=== PATIENT | male | born 1975 | race Caucasian/White ===

== ENCOUNTER 2016-06-05 04:07 | Emergency (ER) | payer OTHER ==
[~2016-06-05] VITALS: Ht 182.9 cm; Wt 88.0 kg
[~2016-06-05 04:07] MED LIST: AMB10 PO; ATV2 PO; CEPH500C PO; CLX20 PO; NAPR-1168 PO; ONDA4TAB46 PO; OXYC1TAB3 PO
[2016-06-05 04:15] VITALS: TEMP 36.6; Ht 182.9 cm; Wt 88.0 kg
[2016-06-05] MEDS ORDERED: ACETAMINOPHEN 500 MG TAB PO STA (04:32)
[2016-06-05] MEDS ORDERED: AMOXICILLIN/CLAVULANATE TAB 875 MG TAB PO ONE (04:45)
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
[2016-06-05] MEDS ORDERED: AMOX875T PO (05:36)
[2016-06-05 05:45] VITALS: BP 161/98; PULSE 95; O2SAT 98
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
== END 2016-06-05 05:45 | disposition home or self-care (01) ==
LOC: C.EDB 04:08 → C.EDA 05:45
DX: S09.90XA Unspecified injury of head, initial encounter (principal); S19.9XXA Unspecified injury of neck, initial encounter; S29.9XXA Unspecified injury of thorax, initial encounter; S01.502A Unspecified open wound of oral cavity, initial encounter; Y04.2XXA Assault by strike against or bumped into by another person, initial encounter; Y92.89 Other specified places as the place of occurrence of the external cause; G89.29 Other chronic pain; Z79.899 Other long term (current) drug therapy

== ENCOUNTER 2021-09-21 17:14 | Observation (INO) ==
[2021-09-21 17:51] LABS: Basophils # (auto) 0.01 K/uL (0-0.2); Basophils % (auto) 0.1 %; Eosinophils # (auto) 0.03 K/uL (0-0.5); Eosinophils % (auto) 0.4 %; Hematocrit (blood only) 44.5 % (42-52); Hemoglobin 15.5 g/dL (14.0-18.0); Immature Granulocytes # (auto) 0.02 K/uL (0.00-0.02); Immature Granulocytes % (auto) 0.3 %; Lymphocytes # (auto) 0.65 K/uL (1.2-3.4); Lymphocytes % (auto) 8.2 %; Mean Corpuscular Hgb Conc 34.8 g/dL (32-36); Mean Corpuscular Volume 91.9 fL (80-100); Mean Platelet Volume 10.8 fL (7.4-10.4); Monocytes # (auto) 0.52 K/uL (0.11-0.59); Monocytes % (auto) 6.6 %; Neutrophils # (auto) 6.67 K/uL (1.4-6.5); Neutrophils % (auto) 84.4 %; Platelet Count 170 K/uL (130-400); RDW Standard Deviation 43.4 fL (36.4-46.3); Red Blood Count 4.84 M/uL (4.7-6.1)
--- NOTE | 2021-09-21 18:09 | Emergency Department Note ---
History of Present Illness General Chief complaint: Abdominal Pain Stated complaint: APPENDICITIS, REF BY Time Seen by Provider: 09/21/21 17:29 Source: patient Mode of arrival: ambulatory Limitations: no limitations History of Present Illness Maximum Pain Intensity: 6 This patient is a 46-year-old male who presents to the emergency department for evaluation of appendicitis. Patient states that he began having some abdominal pain last night, which was initially some mild generalized pain. He states that the pain worsened today and was more localized in the right lower quadrant. He was seen at his PCPs office and they ordered a CT scan which was done as an outpatient and showed acute appendicitis. Patient reports his pain is a 6/10. He denies any nausea/vomiting or fevers. He last ate last night. Home Medications Medication Instructions Recorded Confirmed Type Various Herbal Medications 1 dose PO DAILY 02/10/20 09/21/21 History ibuprofen 200 mg tablet 400 - 600 mg PO Q6H PRN 02/10/20 09/21/21 History methylphenidate HCl 20 mg tablet 20 mg PO TID 02/10/20 09/21/21 History (Ritalin) zinc 50 mg tablet 50 mg PO DAILY 02/10/20 09/21/21 History zolpidem 10 mg tablet (Ambien) 10 mg PO HS 02/10/20 09/21/21 History ascorbic acid (vitamin C) 1,000 mg 2 g PO DAILY 09/21/21 09/21/21 History tablet (Vitamin C) Allergies Allergy/AdvReac Type Severity Reaction Status Date / Time aspirin Allergy Intermediate HIVES Verified 09/21/21 17:58 carbamazepine Allergy Intermediate Rash Verified 09/21/21 17:58 Past Med/Surg History Medical History ADHD Surgical History S/P wisdom tooth extraction Social History Smoking Status: Never smoker Feels Safe at Home: Yes Review of Systems A total of 10 systems reviewed and were otherwise negative Physical Exam Vital Signs Vital Signs - 24 hr 09/21/21 17:22 09/21/21 17:43 09/21/21 18:30 Temperature 37.4 C Temperature Source Temporal Artery Scan Pulse Rate 105 H 82 Pulse Rate [Apical] 90 Pulse Rhythm [Apical] Respiratory Rate 16 16 15 Respiratory Effort / Characteristics Non-Labored Respiratory Depth Normal Respiratory Pattern Blood Pressure 158/93 H 141/97 H Blood Pressure [Right Arm] 152/94 H Blood Pressure Mean 114 111 Blood Pressure Mean [Right Arm] 113 Pulse Oximetry 98 97 98 Oxygen Delivery Method Room Air Sepsis Recent Fever Within 48 Hours No Sepsis New/Unexplained Change in Mental Status No Sepsis Action Taken by Nursing No Action Required 09/21/21 19:00 09/21/21 19:30 09/21/21 21:54 Temperature 36.0 C L Temperature Source Temporal Artery Scan Pulse Rate 79 78 Pulse Rate [Apical] 92 H Pulse Rhythm [Apical] Regular Respiratory Rate 17 14 20 Respiratory Effort / Characteristics Non-Labored Spontaneous Respiratory Depth Normal Respiratory Pattern Regular Blood Pressure 138/78 136/79 Blood Pressure [Right Arm] 140/98 Blood Pressure Mean 98 98 Blood Pressure Mean [Right Arm] 112 Pulse Oximetry 95 95 96 Oxygen Delivery Method Room Air Sepsis Recent Fever Within 48 Hours Sepsis New/Unexplained Change in Mental Status Sepsis Action Taken by Nursing 09/21/21 22:00 09/21/21 22:10 Temperature Temperature Source Pulse Rate Pulse Rate [Apical] 90 80 Pulse Rhythm [Apical] Regular Regular Respiratory Rate 16 16 Respiratory Effort / Characteristics Non-Labored Spontaneous Non-Labored Spontaneous Respiratory Depth Normal Normal Respiratory Pattern Regular Regular Blood Pressure Blood Pressure [Right Arm] 145/96 H 151/90 H Blood Pressure Mean Blood Pressure Mean [Right Arm] 112 110 Pulse Oximetry 97 94 Oxygen Delivery Method Room Air Room Air Sepsis Recent Fever Within 48 Hours Sepsis New/Unexplained Change in Mental Status Sepsis Action Taken by Nursing VITALS: Vitals are noted on the nurse's note and reviewed by myself. GENERAL: This is a 46-year-old male, in no acute distress, well-developed well- nourished. SKIN: The skin was without rashes. EYES: Pupils equal round and reactive to light and accommodation. MOUTH: Mucous membranes moist. Tonsils are not enlarged. Pharynx without erythema or exudate. NECK: Supple without nuchal rigidity. No lymphadenopathy. HEART: Regular rate and rhythm without murmurs gallops or rubs. LUNGS: Clear to auscultation bilaterally without wheezes, rales or rhonchi. ABDOMEN: Positive bowel sounds x 4. Soft, moderate tenderness in the right lower quadrant. No guarding or rebound tenderness. NEURO: Patient was alert and oriented to person place and time. Course Administered Medications Fentanyl Citrate (Fentanyl Citrate 100 Mcg/2 Ml Vial) 50 mcg IV Q5M PRN PRN Reason: PACU Use Only-Pain Stop: 09/22/21 02:38 Last Admin: 09/21/21 22:05 Dose: 50 mcg Documented by: [id number] Admin: 09/21/21 21:56 Dose: 50 mcg Documented by: [id number] Discontinued Medications Bupivacaine HCl (Bupivacaine 0.5 % 5 Mg/1 Ml Mpf 30ml Vial) Confirm Administered Dose 30 ml .ROUTE .STK-MED ONE Stop: 09/21/21 18:34 Last Admin: 09/21/21 21:37 Dose: 30 ml Documented by: [id number] Epinephrine HCl (Epinephrine Inj 1 Mg/Ml Amp) Confirm Administered Dose 1 mg .ROUTE .STK-MED ONE Stop: 09/21/21 18:34 Last Admin: 09/21/21 21:37 Dose: 0.15 mg Documented by: [id number] Fentanyl Citrate (Fentanyl Citrate 100 Mcg/2 Ml Vial) Confirm Administered Dose 100 mcg .ROUTE .STK-MED ONE Stop: 09/21/21 21:55 Last Admin: 09/21/21 21:57 Dose: Not Given Documented by: [id number] Cefoxitin Sodium (Mefoxin) 2,000 mg in 60 mls @ 100 mls/hr IV NOW STA Stop: 09/21/21 18:57 Last Infusion: 09/21/21 19:09 Dose: 0 mls/hr Documented by: [id number] Admin: 09/21/21 18:30 Dose: 100 mls/hr Documented by: [id number] Sodium Chloride (Nss 1000ml) 1,000 mls @ 999 mls/hr IV .Q1H1M TY Stop: 09/21/21 20:30 Last Infusion: 09/21/21 20:24 Dose: 0 mls/hr Documented by: [id number] Admin: 09/21/21 19:23 Dose: 999 mls/hr Documented by: [id number] Morphine Sulfate (Morphine Sulfate 2 Mg/Ml Carp) 2 mg IV NOW STA Stop: 09/21/21 19:18 Last Admin: 09/21/21 19:21 Dose: 2 mg Documented by: [id number] Medical Decision Making Differential Diagnosis Appendicitis, testicular torsion, infections, diverticulitis, UTI, obstruction, mesenteric ischemia, aortic pathology, inflammatory bowel disease, renal colic, PUD, pancreatitis, biliary pathology, hernia, volvulus, constipation, as well as other pathologies. Medical Records Attestation: I reviewed the patient's medical records. Outside records were reviewed. Patient had a CT scan performed through [facility] today which showed acute appendicitis without abscess or perforation. Home Medications Current Medication List: was personally reviewed by me Laboratory Data Attestation: I reviewed the patient's lab results. Result diagrams: 09/21/21 17:40 09/21/21 17:40 Lab Results 09/21/21 09/21/21 09/21/21 Range/Units 17:33 17:40 17:40 WBC 7.90 (4.8-10.8) K/uL RBC 4.84 (4.7-6.1) M/uL Hgb 15.5 (14.0-18.0) g/dL Hct 44.5 (42-52) % MCV 91.9 (80-100) fL MCH 32.0 (25-34) pg MCHC 34.8 (32-36) g/dL RDW Std Deviation 43.4 (36.4-46.3) fL RDW Coeff of [place] 13.0 (11.5-14.5) % Plt Count 170 (130-400) K/uL MPV 10.8 H (7.4-10.4) fL Immature Gran % (Auto) 0.3 % Neut % (Auto) 84.4 % Lymph % (Auto) 8.2 % [place] % (Auto) 6.6 % Eos % (Auto) 0.4 % Baso % (Auto) 0.1 % Neut # (Auto) 6.67 H (1.4-6.5) K/uL Lymph # (Auto) 0.65 L (1.2-3.4) K/uL [place] # (Auto) 0.52 (0.11-0.59) K/uL Eos # (Auto) 0.03 (0-0.5) K/uL Baso # (Auto) 0.01 (0-0.2) K/uL Immature Gran # (Auto) 0.02 (0.00-0.02) K/uL Sodium 136 (136-145) mmol/L Potassium 3.7 (3.5-5.1) mmol/L Chloride 99 (98-107) mmol/L Carbon Dioxide 26 (21-32) mmol/L Anion Gap 11 (3-11) BUN 8 (6-23) mg/dl Creatinine 0.89 (0.6-1.4) mg/dl Est Cr Clr Drug Dosing 118.2 ml/min Est GFR ( Amer) 120.5 ml/min Est GFR (Non-Af Amer) 104.0 ml/min BUN/Creatinine Ratio 9.0 L (10-20) Glucose 100 H (70-99(Fasting)) mg/dl Calcium 9.8 (8.5-10.1) mg/dl Total Bilirubin 1.0 (0.2-1.0) mg/dl AST 15 (13-39) U/L ALT 9 (7-52) U/L Alkaline Phosphatase 47 (34-104) U/L Total Protein 7.9 (6.0-8.3) gm/dl Albumin 5.0 (3.4-5.0) gm/dl Globulin 2.9 (2.5-4.0) gm/dl Albumin/Globulin Ratio 1.7 (0.9-2) SARS-CoV-2, RNA, NAAT NEGATIVE (NEGATIVE) MDM Narrative This patient is a 46-year-old male who presents to the emergency department for evaluation of abdominal pain. He had an outpatient CT scan done today which showed acute appendicitis. General surgery was consulted and will evaluate the patient for further care. Patient given a dose of cefoxitin. COVID-19 test was performed and was negative. Impression & Plan Acute appendicitis Discharge Plan Visit Data Chief Complaint: Abdominal Pain Stated Complaint: APPENDICITIS, REF BY ED Provider: Davey Freeman ED Midlevel Provider: Amie Gonzalez Discharge Problem: Acute appendicitis Discharge Instructions Interventions: ED Discharge Assessment Last Done: 09/21/21 20:32 Forms Stand Alone Forms: [facility] Prescriptions Prescriptions: No Action methylphenidate HCl [Ritalin] 20 mg tablet 20 mg PO TID RF: 0 ibuprofen 200 mg Tablet 400 - 600 mg PO Q6H PRN (Reason: Pain) RF: 0 zinc 50 mg Tablet 50 mg PO DAILY RF: 0 zolpidem [Ambien] 10 mg tablet 10 mg PO HS RF: 0 Various Herbal Medications 1 dose PO DAILY RF: 0 ascorbic acid (vitamin C) [Vitamin C] 1,000 mg Tablet 2 g PO DAILY RF: 0 Referrals Referrals: Juan Hernandez DO [Primary Care Provider] -
[2021-09-21 18:20] LABS: Albumin Globulin Ratio 1.7 (0.9-2); Calcium 9.8 mg/dl (8.5-10.1); Creatinine Clr Calc Pharmacy 118.2 ml/min; Est GFR (African American) 120.5 ml/min; Globulin 2.9 gm/dl (2.5-4.0); Potassium 3.7 mmol/L (3.5-5.1); Total Protein 7.9 gm/dl (6.0-8.3)
[2021-09-21] MEDS ORDERED: cefOXitin 2,000 MG/60 ML BAG IV STA (18:22)
[2021-09-21] MEDS ORDERED: EPINEPHrine INJ 1 MG/ML AMP ONE (18:33)
[2021-09-21] MEDS ORDERED: BUPIVACAINE 0.5 % 5 MG/1 ML MPF 30ML VIAL ONE (18:33)
[2021-09-21] MEDS ORDERED: ePHEDrine sulfate 50 MG/ML AMP IV PRN (18:38)
[2021-09-21] MEDS ORDERED: ONDANSETRON INJ 2 MG/ML 2 ML VIAL IV PRN ×2 (18:38→23:26)
[2021-09-21] MEDS ORDERED: ATROPINE SULFATE 0.1 MG/ML 10ML SYR IV PRN (18:38)
--- NOTE | 2021-09-21 18:40 | Anesthesiology Consultation ---
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 History Surgery Operation Date: 09/21/21 18:30 Proposed Procedures p Laparoscopic Appendectomy - Jaiber Friedman DO Height/Weight Height: 5 ft 10 in Weight: 87.7 kg Allergies Allergy/AdvReac Type Severity Reaction Status Date / Time aspirin Allergy Intermediate HIVES Verified 09/21/21 17:58 carbamazepine Allergy Intermediate Rash Verified 09/21/21 17:58 Medications Home Medications Medication Instructions Recorded Confirmed Last Taken Various Herbal Medications 1 dose PO DAILY 02/10/20 09/21/21 02/10/20 ibuprofen 200 mg tablet 400 - 600 mg PO Q6H PRN 02/10/20 09/21/21 02/10/20 600 mg methylphenidate HCl 20 mg tablet 20 mg PO TID 02/10/20 09/21/21 09/21/21 14:00 (Ritalin) zinc 50 mg tablet 50 mg PO DAILY 02/10/20 09/21/21 09/21/21 zolpidem 10 mg tablet (Ambien) 10 mg PO HS 02/10/20 09/21/21 09/20/21 ascorbic acid (vitamin C) 1,000 mg 2 g PO DAILY 09/21/21 09/21/21 09/21/21 tablet (Vitamin C) Active Medications Generic Name Dose Route Start Last Admin Trade Name Freq PRN Reason Stop Dose Admin Cefoxitin Sodium 2,000 mg in 60 mls @ 100 mls/hr 09/21/21 18:22 09/21/21 18:30 Mefoxin IV 09/21/21 18:57 100 mls/hr NOW STA Administration NPO Date Last Intake of Fluids: 09/21/21 Last Intake of Fluids Comment: Water this morning Date Last Intake of Solids: 09/20/21 Past Medical History Medical History ADHD Past Surgical History Surgical History S/P wisdom tooth extraction Social History Smoking Status: Never smoker Physical Exam Vital Signs Last Vital Signs Temp 99.3 F 09/21/21 17:22 Pulse 90 09/21/21 17:43 Resp 16 09/21/21 17:43 BP 152/94 H 09/21/21 17:43 Pulse Ox 97 09/21/21 17:43 Testing Laboratory Results 09/21/21 17:40 09/21/21 17:40
[2021-09-21] MEDS ORDERED: MoRPHine SULFATE 2 MG/ML CARP IV STA (19:17)
[2021-09-21] MEDS ORDERED: SODIUM CHLORIDE 0.9% 1000ML 1,000 ML IV SCH (19:30)
--- NOTE | 2021-09-21 19:32 | History & Physical Report ---
Date of Service September 21, 2021 Assessment & Plan (1) Acute appendicitis: Plan: We discussed his diagnosis as well as his options. We discussed nonoperative versus operative options. We discussed the risks of surgery which include bleeding, infection, injury to another organ such as ureter bowel or bladder, DVT, PE, KS, CVA etc. I answered all of his questions. We will proceed as soon as possible with laparoscopic appendectomy. He agrees with the plan. History of Present Illness Primary Care Provider: Juan Hernandez DO 46-year-old male with pain since yesterday. Has progressed overnight into this morning in the right lower quadrant. Outpatient CT scan shows acute appendicitis. Allergies Allergy/AdvReac Type Severity Reaction Status Date / Time aspirin Allergy Intermediate HIVES Verified 09/21/21 17:58 carbamazepine Allergy Intermediate Rash Verified 09/21/21 17:58 Home Medications Medication Instructions Recorded Confirmed Type Various Herbal Medications 1 dose PO DAILY 02/10/20 09/21/21 History ibuprofen 200 mg tablet 400 - 600 mg PO Q6H PRN 02/10/20 09/21/21 History methylphenidate HCl 20 mg tablet 20 mg PO TID 02/10/20 09/21/21 History (Ritalin) zinc 50 mg tablet 50 mg PO DAILY 02/10/20 09/21/21 History zolpidem 10 mg tablet (Ambien) 10 mg PO HS 02/10/20 09/21/21 History ascorbic acid (vitamin C) 1,000 mg 2 g PO DAILY 09/21/21 09/21/21 History tablet (Vitamin C) Past Med/Surg History Medical History ADHD Surgical History S/P wisdom tooth extraction Social History Smoking Status: Never smoker Feels Safe at Home: Yes Review of Systems All systems reviewed & are unremarkable except as noted in HPI & below Physical Exam Constitutional: WD/WN, vitals as above no acute distress and not ill appearing Eyes: PERRL, conjunctivae normal, anicteric sclerae EOM intact bilaterally ENMT: external ear and nose normal, oropharynx normal Ears: no hearing impairment Neck: trachea midline, no thyromegaly Respiratory: normal respiratory effort; no respiratory distress and does not use accessory muscles Cardiovascular: Rate/Rhythm: regular rate and regular rhythm Gastrointestinal (Abdomen): Soft. Positive lower abdominal tenderness. Positive McBurney's. Positive Rovsing. Skin: no rashes, warm and dry Psychiatric: Orientation: alert, oriented x 3 and cooperative Results & Data ([facility]) Vital Signs (Past 12 Hours) Vital Signs Temp Pulse Pulse Resp BP BP Pulse Ox 09/21/21 19:00 79 17 138/78 95 09/21/21 18:30 82 15 141/97 H 98 09/21/21 17:43 90 16 152/94 H 97 09/21/21 17:22 37.4 C 105 H 16 158/93 H 98
[2021-09-21] MEDS ORDERED: fentaNYL citrate 100 MCG/2 ML VIAL ONE ×4 (20:17→22:22)
[2021-09-21] MEDS ORDERED: DEXAMETHASONE SOD INJ 4 MG/ML VIAL ONE ×2 (20:18→21:11)
[2021-09-21] MEDS ORDERED: LIDOCAINE 2% 2 ML VIAL/AMP(20MG/ML) INFIL ONE (20:18)
[2021-09-21] MEDS ORDERED: ONDANSETRON INJ 2 MG/ML 2 ML VIAL ONE (20:18)
[2021-09-21] MEDS ORDERED: PROPOFOL IV EMULSION 10 MG/ML 20 ML VIAL IV ONE ×2 (21:10)
[2021-09-21] MEDS ORDERED: ROCURONIUM BROMIDE 10 MG/ML 5 ML VIAL IV ONE (21:35)
[2021-09-21] MEDS ORDERED: SUCCINYLCHOLINE CHLORIDE 20 MG/ML 10 ML VIAL IV ONE (21:35)
[2021-09-21] MEDS ORDERED: KETOROLAC 30 MG/ML VIAL ONE (21:35)
[2021-09-21] MEDS: fentaNYL citrate 100 MCG/2 ML VIAL IV PRN ×4 (21:56→22:28)
--- NOTE | 2021-09-21 21:59 | Operative Report ---
PG Post Operative Report Pre & Post Diagnosis Operation Date: 09/21/21 18:30 Pre-Op Diagnosis: Acute appendicitis Post-Op Diagnosis: Acute appendicitis I identified the patient and participated in the time-out.: Yes Procedure Operation Date: 09/21/21 18:30 Actual Procedures p Laparoscopic Appendectomy(Not Applicable) - Jabier Friedman DO Surgeon Jabier Friedman DO Registered Nurse Ambulatory suzan Dao Estimated Blood Loss 5 Findings Consistent with Post-Op Diagnosis Specimens appendix Description of Procedure After informed consent was obtained the patient was taken to the operating room and placed in supine position. After successful intubation a Ortega catheter was placed and the left arm was tucked. A Ortega catheter was inserted sterilely. I began by making a periumbilical incision with an 11 blade scalpel and carried this down through the soft tissue using electrocautery. The anterior rectus fascia was opened using electrocautery and 2 #0 Vicryl stay sutures were placed. The peritoneum was elevated using hemostats and incised under direct vision using a Metzenbaum scissor. A finger sweep was performed. A 12 mm Palma trocar was placed and the abdomen was insufflated to 18 mmHg. A laparoscope was inserted and the abdomen was examined in 360. A suprapubic 5 mm port and a left lower quadrant 12 mm port were placed under direct vision. The patient was air planed to the left as well as placed in a slight Trendelenburg position. We began by looking in the right lower quadrant. We were able to readily identify the appendix and it was grossly inflamed. It had not perforated. There is a small amount of purulent fluid in the right lower quadrant and the pelvis. We immediately irrigated and suctioned this out. I was able to use primarily blunt dissection to pull the appendix away from the right lower quadrant sidewall. I used a [place] dissector to create a small window in the mesentery of the ap pendix. I was then able to use a LAUREN brown cartridge stapler to transect first the mesentery of the appendix followed by the appendix itself at its base with the cecum. It was then placed into an Endo Catch bag and removed from the camera port site. We thoroughly irrigated the right lower quadrant as well as the pelvis. There was adequate hemostasis. I ran the small bowel backwards from the terminal ileum for about 6 feet all of which was normal. All the peritoneal surfaces were normal. Small/ large bowel, liver, stomach etc. all appeared grossly normal. We did a final irrigation and then removed all the trochars and desufflated the abdomen. The fascia of the camera port as well as the left lower quadrant were closed using 0 Vicryl in [id number] fashion. Wounds were all irrigated and closed using 4-0 Monocryl. Marcaine was injected around them for postoperative analgesia and skin glue used as a dressing. The patient was awakened extubated and transferred to recovery in stable condition. My physician's food service assistant was present through the entire case. he assisted with prepping the patient and helped with exposure for port placement, helped run the camera and helped with fascial/wound closure at the end of the procedure as well as dressing placement. I attest to the content of the Intraoperative Record and any orders documented therein. Any exceptions are noted below. I attest to the content of the Intraoperative Record and any orders documented therein. Any exceptions are noted below.
--- NOTE | 2021-09-21 23:12 | Anesthesiology Progress Note ---
Date of Service September 21, 2021 Anesthesia Post Procedure Vital Signs Vital Signs: Temp Pulse Pulse Resp BP BP Pulse Ox 09/21/21 22:40 98.8 F 78 18 133/75 93 09/21/21 22:30 75 12 148/81 H 97 09/21/21 22:20 85 20 144/82 H 95 09/21/21 22:10 80 16 151/90 H 94 09/21/21 22:00 90 16 145/96 H 97 09/21/21 21:54 96.8 F L 92 H 20 140/98 96 09/21/21 19:30 78 14 136/79 95 09/21/21 19:00 79 17 138/78 95 09/21/21 18:30 82 15 141/97 H 98 09/21/21 17:43 90 16 152/94 H 97 09/21/21 17:22 99.3 F 105 H 16 158/93 H 98 Pain Intensity Right Lower Abdomen: Pain Intensity: 4 Left Abdomen: Pain Intensity: 5 Transfer of Care Handoff Completed per policy Notes Mental Status: alert / awake / arousable and participated in evaluation Patient Amnestic to Procedure: Yes Nausea / Vomiting: adequately controlled Pain: adequately controlled Airway Patency, RR, SpO2: stable & adequate BP & HR: stable & adequate Hydration State: stable & adequate Anesthetic Complications: no major complications apparent and Pt Satisfied with anesthetic care
[2021-09-21] MEDS ORDERED: ACETAMINOPHEN 1,000 MG/100 ML VIAL IV PRN (23:26)
[2021-09-22] MEDS: MoRPHine SULFATE 4 MG/ML 1 ML CARP\\VIAL IV PRN ×3 (00:20→07:57)
[2021-09-22] MEDS: LACTATED RINGER'S 1,000 ML IV SCH ×2 (00:21→07:56)
[2021-09-22] MEDS: cefOXitin 2,000 MG in DEXTROSE 5% 50 ML IV SCH ×2 (00:39→05:59)
[2021-09-22] MEDS ORDERED: HYDROCODONE/ACETAMOPHEN 5/325MG TAB PO PRN (08:33)
--- NOTE | 2021-09-22 11:06 | Surgery Progress Note ---
Date of Service September 22, 2021 Assessment & Plan (1) Acute appendicitis: Plan: Postoperative day #1 He is doing well/as expected Okay for discharge. Instructions given Admission and Anticipated Discharge Date Admission Date: September 21, 2021 Subjective Patient seen. Incisional soreness but feeling much better than yesterday. Physical Exam Physical Exam: Alert. No acute distress Abdomen is soft. Expected incisional tenderness. The incisions all look good Results & Data ([facility] [place]) Vital Signs (Past 12 Hours) Vital Signs Temp Pulse Pulse Resp BP Pulse Ox 09/22/21 10:46 36.6 C 78 71 18 125/75 95 09/22/21 07:40 36.6 C 71 18 125/75 95 09/22/21 02:00 36.7 C 73 16 124/74 97 09/22/21 01:00 36.7 C 81 16 142/85 H 95 09/22/21 00:00 36.8 C 81 16 118/68 96 09/21/21 23:30 36.7 C 79 16 121/72 92 PG Care Time/CCT Total # of Minutes Spent Total Time Spent with Patient: Total time spent is greater than 50% in coordination of care (as documented) at patient's floor/unit and/or counseling patient: Coding Level of Care Code None Diagnoses Acute appendicitis K35.80
--- NOTE | 2021-09-22 14:46 | Electrocardiogram Report ---
Test Reason : Blood Pressure : / mmHG Vent. Rate : 092 BPM Atrial Rate : 092 BPM P-R Int : 164 ms QRS Dur : 088 ms QT Int : 362 ms P-R-T Axes : 034 012 057 degrees QTc Int : 447 ms Normal sinus rhythm Normal ECG When compared with ECG of 10-FEB-2020 15:26, No significant change was found Confirmed by Osei Fallon ([id number]) on 09/22/2021 2:46:06 PM Referred By: Juan Hernandez Confirmed By:Andrade Fallon
== END 2021-09-22 11:15 | disposition home or self-care (01) ==
LOC: ED 17:14 → 3N 17:14